=== PATIENT | female | born 1990 | race Caucasian/White ===

== ENCOUNTER 2016-11-26 10:34 | Emergency (ER) | payer MEDICAID ==
[~2016-11-26] VITALS: Wt 79.5 kg
[2016-11-26 11:33] LABS: BASOPHILS % 0.2 % (0.0-2.0); EOSINOPHILS # 0.1 10^3/ul (0.0-0.5); EOSINOPHILS % 0.9 % (0.0-7.0); HEMATOCRIT 34.8 % (37.0-47.0); HEMOGLOBIN 11.9 g/dl (12.0-16.0); LYMPHOCYTES % 24.2 % (15.0-51.0); MEAN CORPUSCULAR HEMOGLOBIN 29.4 pg (29.0-33.0); MEAN CORPUSCULAR HGB CONC 34.2 g/dl (32.0-37.0); MEAN CORPUSCULAR VOLUME 85.7 fl (82.0-101.0); MEAN PLATELET VOLUME 7.9 fl (7.4-10.4); MONOCYTE # 0.6 10^3/ul (0.3-0.9); NEUTROPHIL # 5.4 10^3/ul (1.6-7.5); NEUTROPHILS % 67.7 % (39.0-77.0); PLATELET COUNT 282 10^3/UL (140-440); RED BLOOD COUNT 4.06 10^6/ul (4.20-5.40); UNCORRECTED WBC 8.1 10^3/ul (4.8-10.8); WHITE BLOOD COUNT 8.1 10^3/ul (4.8-10.8)
[2016-11-26 11:38] LABS: ADD UMIC YES; URINE BILIRUBIN (Dip) NEGATIVE (NEGATIVE); URINE BLOOD (Dip) TRACE (NEGATIVE); URINE COLOR LT. YELLOW (YELLOW); URINE GLUCOSE (Dip) NEGATIVE (NEGATIVE); URINE KETONES (Dip) NEGATIVE (NEGATIVE); URINE LEUKOCYTE ESTERASE (Dip) NEGATIVE (NEGATIVE); URINE NITRITE (Dip) NEGATIVE (NEGATIVE); URINE TOTAL PROTEIN (Dip) NEGATIVE (NEGATIVE); URINE UROBILINOGEN (Dip) 0.2 E.U./dL (0.1-1.0)
[2016-11-26 11:42] LABS: CONDITION 1
[2016-11-26 11:52] LABS: BACTERIA,URINE FEW; URINE RBCS 0-2 /HPF (0)
--- NOTE | 2016-11-26 12:37 | RADRPT ---
PROCEDURE: US OB. CLINICAL INDICATION: Vaginal bleeding TECHNIQUE: Transabdominal views of the pelvis are available for review. COMPARISON: No prior studies are available for comparison. FINDINGS: There is a single intrauterine gestation with the crown-rump length measuring 1.8 cm, corresponding to a gestational age of 8 weeks and 2 days. The heart rate is noted at 150 bpm. The ovaries are not visualized. There is no free fluid. RPTAT: AA IMPRESSION: Single live intrauterine with an estimated gestational age of 8 weeks and 2 days, based on ultrasound measurements. JENNIFER based on ultrasound measurements is 07/05/17. .Otoniel Real MD, MD Date Time Electronically viewed and signed by .Otoniel Real MD, on 11/26/2016 12:36 .S/
[2016-11-26] MEDS ORDERED: PRENAT PO (13:00)
--- NOTE | 2016-11-26 13:02 | ERD ---
ER Documentation Chief Complaint Date/Time DATE: 11/26/16 TIME: 13:00 Chief Complaint vag bleed, 8 wks preg HPI This 26-year-old female complains of intermittent vaginal spotting since last week. She is approximately 8 weeks by dates. She denies any appreciable clots or tissue denies any fevers, urinary complaints, flank pain, significant sustained abdominal pain. She has not had her first formal care visit by history. ROS All systems reviewed and are negative except as per history of present illness. Medications Home Meds Active Scripts Multivit/Min/Fol Ac/Iron/Pren* ( S*) 1 Tab Tab, 1 TAB PO DAILY, #100 TAB Prov:JUAN R GUPTA MD 11/26/16 PMhx/Soc Medical and Surgical Hx: pt denies Medical Hx, pt denies Surgical Hx Physical Exam Vitals Vital Signs Date Time Temp Pulse Resp B/P Pulse Ox O2 Delivery O2 Flow Rate FiO2 11/26/16 10:45 98.5 92 20 115/72 98 Physical Exam Const: [] Head: Atraumatic Eyes: Normal Conjunctiva ENT: Normal External Ears, Nose and Mouth. Neck: Full range of motion..~ No meningismus. Resp: Clear to auscultation bilaterally Cardio: Regular rate and rhythm, no murmurs Abd: Soft, non tender, non distended. Normal bowel sounds Skin: No petechiae or rashes Back: No midline or flank tenderness Ext: No cyanosis, or edema Neur: Awake and alert Psych: Normal Mood and Affect Result Diagram: 11/26/16 1117 Results 24 hrs Laboratory Tests Test 11/26/16 11:11 11/26/16 11:17 Urine Bacteria FEW Urine Bilirubin NEGATIVE Urine Clarity CLEAR Urine Color LT. YELLOW Urine Glucose NEGATIVE% Urine Hemoglobin TRACE Urine Ketones NEGATIVE Urine Leukocyte Esterase NEGATIVE Urine Microscopic RBC 0-2/HPF Urine Microscopic WBC 0-2/HPF Urine Nitrite NEGATIVE Urine Specific [place] 1.010 Urine Total Protein NEGATIVE Urine Urobilinogen 0.2 E.U./dL Urine pH 7.5 Basophils # 0.010^3/ul Basophils % 0.2% Beta HCG, Quantitative 205436.0mIU/ml Eosinophils # 0.110^3/ul Eosinophils % 0.9% Hematocrit 34.8% Hemoglobin 11.9g/dl Lymphocytes # 2.010^3/ul Lymphocytes % 24.2% Mean Corpuscular Hemoglobin 29.4pg Mean Corpuscular Hemoglobin Concent 34.2g/dl Mean Corpuscular Volume 85.7fl Mean Platelet Volume 7.9fl Monocytes # 0.610^3/ul Monocytes % 7.0% Neutrophils # 5.410^3/ul Neutrophils % 67.7% Nucleated Red Blood Cells # 0.010^3/ul Nucleated Red Blood Cells % 0.0/100WBC Platelet Count 29157^3/UL Red Blood Count 4.0610^6/ul Red Cell Distribution Width 13.0% White Blood Count 8.110^3/ul Procedures/MDM Pelvic ultrasound shows single live intrauterine approximately 8 weeks 2 days. There are no acute findings. CBC shows a white blood cell of 8.1 , otherwise hemoglobin 11.9 and platelet count of 282. Urine is negative for infection, glucose, nitrites, blood. Quantitative hCG is 161,000 patient stable throughout the year course. Patient presents with vaginal spotting of uncertain etiology with no acute findings noted on ultrasound. There is no current evidence to suggest ectopic , acute abdomen, UTI, additional emergent causes of abdominal pain or bleeding. She was discharged home with further observation and instructed to follow-up with OB. She is to return to the ER for new or worsening symptoms. Departure Diagnosis: Primary Impression: Vaginal bleeding in patient at less than 20 weeks ges... Condition: Stable Patient Instructions: Bleeding During Early Additional Instructions: Examinations today show normal appearing 8 week 2 day . Recheck with OB as scheduled or return for fevers, worsening bleeding, pain, new or worsening symptoms. JUAN R GUPTA MD Nov 26, 2016 13:02
== END 2016-11-26 13:37 | disposition home or self-care (01) ==
LOC: FTE 10:34
DX: O20.9 Hemorrhage in early pregnancy, unspecified (principal); Z3A.08 8 weeks gestation of pregnancy
CPT/HCPCS: 36415; 76801; 81001; 84702; 85025; 86900; 86901; Z7502; 81003

== ENCOUNTER 2017-03-17 16:28 | Outpatient (CLI) | payer MEDICAID, OTHER ==
[~2017-03-17] VITALS: Ht 157.5 cm; Wt 87.0 kg
[~2017-03-17 16:28] MED LIST: PRENAT PO
[2017-03-17 16:39] VITALS: Ht 157.5 cm; Wt 87.0 kg
[2017-03-17 16:40] VITALS: BP 102/60; PULSE 78; RESP 20
--- NOTE | 2017-03-17 18:10 | RADRPT ---
PROCEDURE: Limited OB ultrasound for DUSTY. CLINICAL INDICATION: Fluids TECHNIQUE: Sonographic evaluation to assess the amniotic fluid volume was performed. Transabdomin al imaging of the gravid uterus was performed. COMPARISON: OB ultrasound 01/07/2017 FINDINGS: Single live intrauterine with cardiac activity is identified. The heart rate i s 156 bpm. The maximum vertical pocket of amniotic fluid measures 7.2 cm, within normal limits. The placenta is anterior. The lie is cephalic. IMPRESSION: 1. Maximum vertical pocket of amniotic fluid measures 7.2 cm, within normal limits. RPTAT: HJBF .Dameon Blackburn MD, MD Date Time Electronically viewed and signed by .Dameon Blackburn MD, MD on 03/17/2017 18:10 .B/
--- NOTE | 2017-03-18 00:16 | QN ---
Documentation Comment 26-year-old with IUP at 24 weeks presented with complaint of leaking of fluid. She denies any vaginal bleeding, decreased movement or uterine contractions. records are available. Antepartum course complicated by positive serum integrated test for Down syndrome status post MFM consultation and genetic counseling. Per patient her NI PT was negative. She declined amniocentesis. Elevated hCG was noted during her antepartum course. Physical examination: General appearance: Alert and oriented oriented 4 patient is not in any acute distress. Abdomen: Soft, gravid, fundal height consistent with gestational age. No abdominal fundal tenderness, no rebound tenderness, no guarding, no rigidity NST: Category 1 and appropriate for gestational age. No contractions on the monitor Sterile speculum examination: Negative pooling, negative nitrazine, negative R OM test DUSTY: Adequate PROCEDURE: Limited OB ultrasound for DUSTY. CLINICAL INDICATION: Fluids TECHNIQUE: Sonographic evaluation to assess the amniotic fluid volume was performed. Transabdominal imaging of the gravid uterus was performed. COMPARISON: OB ultrasound 01/07/2017 FINDINGS: Single live intrauterine with cardiac activity is identified. The heart rate is 156 bpm. The maximum vertical pocket of amniotic fluid measures 7.2 cm, within normal limits. The placenta is anterior. The lie is cephalic. IMPRESSION: 1. Maximum vertical pocket of amniotic fluid measures 7.2 cm, within normal limits. RPTAT: HJBF Assessment: IUP at 24 weeks No evidence of leaking of amniotic fluid. Likely urinary leakage Patient was reassured. No evidence of labor Strict labor precaution and kick counts and follow-up with her OB clinic in a couple days recommended and discussed. She was advised to return to triage if she has recurrence of above symptoms or any other concerns. Patient verbalized understanding. MANUEL HOGAN MD March 18, 2017 00:16
== END 2017-03-17 19:20 | disposition home or self-care (01) ==
LOC: OBT 16:28 → L-D 16:28 → OBT 19:20
PROVIDERS: ATTEND Obstetrics & Gynecology Obstetrics
DX: O26.892 Other specified pregnancy related conditions, second trimester (principal); Z3A.24 24 weeks gestation of pregnancy
CPT/HCPCS: 76815; 84112; Z7500; G0463